=== PATIENT | female | born 1975 | race Caucasian/White ===

== ENCOUNTER → 2021-04-14 | Outpatient (CLI) | payer OTHER | LOC: HEART CORB 12:17 | DX: R06.00 Dyspnea, unspecified (principal); R07.2 Precordial pain ==

== ENCOUNTER → 2021-05-09 | Outpatient (CLI) | payer OTHER | LOC: HEART CORB 08:57 | DX: R07.2 Precordial pain (principal); R06.02 Shortness of breath | CPT/HCPCS: 78452; A9502; J2785 ==